=== PATIENT | male | born 1980 | race American Indian/Alaskan Native ===

== ENCOUNTER 2017-10-02 11:22 | Emergency (ER) | payer SELFPAY ==
[2017-10-02 12:53] VITALS: BP 154/84
--- NOTE | 2017-10-02 16:50 | Emergency Department Report ---
Upper Extremity - HPI Chief Complaint: Abdominal Pain Stated Complaint: STOMACH PAIN Time Seen by Provider: 10/02/17 16:47 ED Review of Systems ROS: Stated complaint: STOMACH PAIN Other details as noted in HPI ED Past Medical Hx - Past Medical History Previous Medical History?: No - Surgical History Past Surgical History?: No - Social History Smoking Status: Never Smoker Substance Use Type: None Upper Extremity Exam - Exam General: Vital signs noted. No distress. Alert and acting appropriately. ED Course Vital Signs 10/02/17 12:50 Temperature 98.7 F Pulse Rate 64 Respiratory 16 Rate Blood Pressure 154/84 O2 Sat by Pulse 98 Oximetry Critical care attestation.: If time is entered above; I have spent that time in minutes in the direct care of this critically ill patient, excluding procedure time. ED Disposition Condition: Stable Referrals: PRIMARY CARE [Primary Care Provider] - 3-5 Days
[2017-10-02] MEDS ORDERED: MOTRIN PO ONE (16:56)
--- NOTE | 2017-10-02 17:06 | Emergency Department Report ---
ED General Adult HPI - General Chief complaint: Abdominal Pain Stated complaint: STOMACH PAIN Time Seen by Provider: 10/02/17 16:47 Source: patient Mode of arrival: Ambulatory Limitations: No Limitations - History of Present Illness Initial comments: Patient presents to the emergency department with a chief complaint of nausea and vomiting with diarrhea since Friday. Patient states that he is missed work since that time and is here to get some further nausea and excuse for work. Patient politely declines further workup. Patient's mother complaints. -: Sudden Radiation: non-radiation Severity scale (0 -10): 0 Consistency: constant Improves with: none Worsens with: none Associated Symptoms: denies other symptoms Treatments Prior to Arrival: none - Related Data Previous Rx's Medication Instructions Recorded Last Taken Type Ondansetron [Zofran Odt] 4 mg PO Q6HR #20 tab.rapdis 10/02/17 Unknown Rx Allergies Allergy/AdvReac Type Severity Reaction Status Date / Time No Known Allergies Allergy Verified 10/02/17 12:50 ED Review of Systems ROS: Stated complaint: STOMACH PAIN Other details as noted in HPI Constitutional: denies: chills, fever Eyes: denies: eye pain, eye discharge, vision change ENT: denies: ear pain, throat pain Respiratory: denies: cough, shortness of breath, wheezing Cardiovascular: denies: chest pain, palpitations Endocrine: no symptoms reported Gastrointestinal: nausea, vomiting, other (diarrhea). denies: abdominal pain, diarrhea Genitourinary: denies: urgency, dysuria Musculoskeletal: denies: back pain, joint swelling, arthralgia Skin: denies: rash, lesions Neurological: denies: headache, weakness, paresthesias Psychiatric: denies: anxiety, depression Hematological/Lymphatic: denies: easy bleeding, easy bruising ED Past Medical Hx - Past Medical History Previous Medical History?: No - Surgical History Past Surgical History?: No - Social History Smoking Status: Never Smoker Substance Use Type: None - Medications Home Medications: Home Medications Medication Instructions Recorded Confirmed Last Taken Type Ondansetron [Zofran Odt] 4 mg PO Q6HR #20 tab.rapdis 10/02/17 Unknown Rx ED Physical Exam - General Limitations: No Limitations General appearance: alert, in no apparent distress - Head Head exam: Present: atraumatic, normocephalic - Eye Eye exam: Present: normal appearance - ENT ENT exam: Present: mucous membranes moist - Neck Neck exam: Present: normal inspection - Respiratory Respiratory exam: Present: normal lung sounds bilaterally. Absent: respiratory distress, wheezes, rales - Cardiovascular Cardiovascular Exam: Present: regular rate, normal rhythm. Absent: systolic murmur, diastolic murmur, rubs, gallop - GI/Abdominal GI/Abdominal exam: Present: soft, normal bowel sounds - Rectal Rectal exam: Present: deferred - Extremities Exam Extremities exam: Present: normal inspection - Back Exam Back exam: Present: normal inspection - Neurological Exam Neurological exam: Present: alert, oriented X3, CN II-XII intact. Absent: motor sensory deficit - Psychiatric Psychiatric exam: Present: normal affect, normal mood - Skin Skin exam: Present: warm, dry, intact, normal color. Absent: rash ED Course Vital Signs 10/02/17 12:50 Temperature 98.7 F Pulse Rate 64 Respiratory 16 Rate Blood Pressure 154/84 O2 Sat by Pulse 98 Oximetry ED Medical Decision Making - Medical Decision Making Patient politely declined further workup stating that he just needs something for nausea from home and excuse for work. Critical care attestation.: If time is entered above; I have spent that time in minutes in the direct care of this critically ill patient, excluding procedure time. ED Disposition Clinical Impression: Nausea vomiting and diarrhea Disposition: DC-01 TO HOME OR SELFCARE Is pt being admited?: No Does the pt Need Aspirin: No Condition: Stable Instructions: Acute Nausea and Vomiting (ED) Additional Instructions: return if worse Prescriptions: Ondansetron [Zofran Odt] 4 mg PO Q6HR #20 tab.rapdis Referrals: PRIMARY MD FALLON [Primary Care Provider] - 3-5 Days [facility] [Outside] - 3-5 Days ALEXANDRA HUFFMAN MD [Staff Physician] - 3-5 Days Forms: Work/School Release Form(ED) Time of Disposition: 17:03
== END 2017-10-02 17:16 | disposition home or self-care (01) ==
LOC: ED 11:22
DX: R11.2 Nausea with vomiting, unspecified (principal); R19.7 Diarrhea, unspecified
CPT/HCPCS: 99282

== ENCOUNTER 2021-02-22 09:25 | Emergency (ER) | payer SELFPAY ==
[2021-02-22 09:38] VITALS: BP 130/82
[2021-02-22] MEDS ORDERED: IBUPROFEN 800 MG TAB PO ONE (09:43)
--- NOTE | 2021-02-22 09:44 | Emergency Department Report ---
ED Lower Extremity HPI - General Chief Complaint: Extremity Problem,Nontraumatic Stated Complaint: LEFT ANKLE PAIN Time Seen by Provider: 02/22/21 09:40 Source: EMS Mode of arrival: Ambulatory Limitations: No Limitations - History of Present Illness Initial Comments: 40 yo comes to ER today with right ankle pain. He was getting out of the car and twisted his ankle- and back before grabbing the car. Pt ambulatory to ER Neurovasc intact -: Sudden, hour(s) Injury: Ankle: Left Type of Injury: eversion Place: home Severity: mild Improves With: immobilization Worsens With: movement Context: other - Related Data Previous Rx's Medication Instructions Recorded Last Taken Type Ondansetron [Zofran Odt] 4 mg PO Q6HR #20 tab.rapdis 10/02/17 Unknown Rx Allergies Allergy/AdvReac Type Severity Reaction Status Date / Time No Known Allergies Allergy Verified 10/02/17 12:50 ED Review of Systems ROS: Stated complaint: LEFT ANKLE PAIN Other details as noted in HPI Comment: All other systems reviewed and negative ED Past Medical Hx - Past Medical History Previous Medical History?: No - Surgical History Past Surgical History?: No - Family History Family history: no significant - Social History Smoking Status: Never Smoker Substance Use Type: None - Medications Home Medications: Home Medications Medication Instructions Recorded Confirmed Last Taken Type Ondansetron [Zofran Odt] 4 mg PO Q6HR #20 tab.rapdis 10/02/17 Unknown Rx ED Physical Exam - General Limitations: No Limitations General appearance: alert, in no apparent distress - Head Head exam: Present: atraumatic, normocephalic - Eye Eye exam: Present: normal appearance - ENT ENT exam: Present: mucous membranes moist - Neck Neck exam: Present: normal inspection - Respiratory Respiratory exam: Present: normal lung sounds bilaterally. Absent: respiratory distress - Cardiovascular Cardiovascular Exam: Present: regular rate, normal rhythm. Absent: systolic murmur, diastolic murmur, rubs, gallop - GI/Abdominal GI/Abdominal exam: Present: soft, normal bowel sounds - Rectal Rectal exam: Present: deferred - Extremities Exam Extremities exam: Present: normal inspection - Back Exam Back exam: Present: normal inspection - Neurological Exam Neurological exam: Present: alert, oriented X3 - Psychiatric Psychiatric exam: Present: normal affect, normal mood - Skin Skin exam: Present: warm, dry, intact, normal color. Absent: rash ED Course Vital Signs 02/22/21 09:28 Temperature 98.6 F Pulse Rate 80 Respiratory 18 Rate Blood Pressure 130/82 [Left] O2 Sat by Pulse 97 Oximetry ED Lower Extremity MDM - Radiology Data Radiology results: report reviewed, image reviewed NAP - Medical Decision Making RICE tx XRAY NOTED MED. FOR PAIN NEUROVASC INTACT Vital Signs 02/22/21 09:28 Temperature 98.6 F Pulse Rate 80 Respiratory 18 Rate Blood Pressure 130/82 [Left] O2 Sat by Pulse 97 Oximetry fer and crutches for pain and comfort remains neurovasc intact dc home with dc plan of care including diet, activity, meds and follow up. - Differential Diagnosis RO FX Critical care attestation.: If time is entered above; I have spent that time in minutes in the direct care of this critically ill patient, excluding procedure time. ED Disposition Clinical Impression: Ankle pain Qualifiers: Chronicity: acute Laterality: left Qualified Code(s): M25.572 - Pain in left ankle and joints of left foot Disposition: 01 HOME / SELF CARE / HOMELESS Is pt being admited?: No Does the pt Need Aspirin: No Condition: Stable Instructions: Ankle Pain Additional Instructions: REST ICE ELEVATE MOTRIN OR TYLENOL FOR PAIN FER AND CRUTCHES FOR COMFORT IF YOUR PAIN IS BETTER AT 48 HOURS STOP USING THEM FOR THEY CAN CAUSE SECONDARY INJURY FOLLOW UP WITH ORTHO MD IF PAIN PERSISTS REFERRAL BELOW Referrals: PRIMARY MD FALLON [Primary Care Provider] - 3-5 Days REVA MARROQUIN MD [Staff Physician] - 3-5 Days Time of Disposition: 10:16
--- NOTE | 2021-02-22 11:14 | XRay Report ---
LEFT ANKLE 3 VIEWS INDICATION: PAIN SP FALL. COMPARISON: None. IMPRESSION: No acute osseous abnormality or joint pathology is appreciated. Moderate plantar spur is noted. The soft tissues are unremarkable. Signer Name: Kal Martinez Jr, MD Signed: 02/22/2021 11:09 AM Workstation Name: [id number]
== END 2021-02-22 12:57 | disposition home or self-care (01) ==
LOC: ED 09:25
DX: M25.572 Pain in left ankle and joints of left foot (principal)
CPT/HCPCS: 99284